=== PATIENT | female | born 1950 | race Caucasian/White ===

== ENCOUNTER 2017-08-29 07:40 | Observation (INO) | payer MEDICARE ==
[2017-08-29] MEDS ORDERED: Fentanyl 100 MCG/2 ML VIAL ONE ×4 (08:38→11:33)
[2017-08-29] MEDS ORDERED: Midazolam HCl 2 mg/2 ml Vial ONE (08:38)
[2017-08-29] MEDS ORDERED: CEFAZOLIN/Water 2 GM/20 ML SYRINGE ONE (08:38)
[2017-08-29] MEDS ORDERED: Lidocaine 1% w/Epinephrine 1:200K 30 ML VIAL ONE (09:01)
[2017-08-29] MEDS ORDERED: Bupivacaine HCl 0.5%/Epinephrine 1:200,000/PF 30 ml Vial ONE (09:01)
--- NOTE | 2017-08-29 11:14 | OP ---
DATE OF PROCEDURE: 08/29/2017 SURGEON: Dr. Deni Medel PREOPERATIVE DIAGNOSIS: Large cell lymphoma. PROCEDURE: Left internal jugular MediPort and excisional biopsy left groin. Node and excision left skin lesion. PROCEDURE: After adequate anesthesia had been obtained, the patient was prepped and draped. A needl e was used to puncture the internal jugular vein with ultrasound guidance. Following this, a wire wa s placed and under fluoroscopic guidance with several passes was placed into the superior vena cava w ith the initial passes tending to go down the left subclavian and then left internal mammary vein. F ollowing this, a separate incision was made over the breast. A tunnel created and the catheter broug ht from one incision to the other. Dilator and sheath were placed under fluoroscopy. The catheter w as then introduced, sheath peeled away and catheter pulled back to good position in the superior vena cava. It was then connected to the MediPort placed in the tunnel and the wounds closed in layers. Following this, a skin incision was made over the left groin node and dissection was carried down to it was dissected free staying immediately adjacent to the capsule and using clips to deal with any ve ssels. Following removal, the wound was closed trying to obliterate the space occupied by this lymph node which was about the size of a golf ball. Following this, the wound was closed in layers and an excision of a small skin lesion below the knee was performed. Wounds were all closed and dressed wi th Dermabond and 1% lidocaine with epinephrine was utilized on the wounds.
[2017-08-29] MEDS ORDERED: PROPOFOL 200 MG/20 ML VIAL ONE (11:38)
[2017-08-29] MEDS ORDERED: Lidocaine 1% PF 5 ML VIAL ONE (11:38)
[2017-08-29] MEDS ORDERED: Promethazine HCl 25 MG/ML VIAL SLOW IVP PRN (12:54)
[2017-08-29] MEDS ORDERED: Ondansetron HCl/PF 4 MG/2 ML Vial IVP PRN (12:54)
[2017-08-29] MEDS ORDERED: Promethazine HCl 25 MG/ML VIAL IM PRN (12:54)
[2017-08-29 13:03] VITALS: BP 153/78; TEMP 97.4; BMI 31.6
[2017-08-29] MEDS ORDERED: Acetaminophen 325 MG TAB PO PRN (13:15)
[2017-08-29] MEDS ORDERED: HYDROcodone/Acetaminophen 5/325 mg Tablet PO PRN (13:15)
[2017-08-29] MEDS ORDERED: traMADol HCl 50 MG TAB PO PRN (13:16)
[2017-08-29] MEDS ORDERED: Zolpidem Tartrate 5 MG TAB PO PRN (13:17)
[2017-08-29] MEDS ORDERED: CEFAZOLIN/Water 2 GM/20 ML SYRINGE SLOW IVP SCH ×2 (14:00→18:00)
--- NOTE | 2017-08-29 14:14 | RAD ---
PORTABLE AP CHEST X-RAY: 08/29/2017 HISTORY: Mediport insertion. COMPARISON: None available. FINDINGS: There is a left internal jugular vein Mediport catheter noted in place, with the tip overlying the ex pected location of the SVC. There is no pneumothorax or pleural effusion seen. The cardiac silhouet te and pulmonary vasculature are within normal limits. There is a curvilinear area of increased dens ity overlying the right mid chest, which has the appearance of radiopaque suture material. Linear sc arring versus atelectasis is present at the left lung base. The lungs are otherwise clear. The osse ous structures are intact. IMPRESSION: 1. Left internal jugular vein Mediport catheter in place without evidence of a pneumothorax. 2. Evidence of postsurgical changes, right hemithorax, with minimal linear scarring in the left lung base. POS: [facility]
[2017-08-30] MEDS ORDERED: Levothyroxine Sodium 125 MCG TAB PO SCH (06:00)
[2017-08-30] MEDS ORDERED: PARoxetine 20 MG TAB PO SCH (09:00)
[2017-08-30] MEDS ORDERED: clonazePAM 1 MG TAB PO SCH (09:00)
[2017-08-30] MEDS ORDERED: sulfaSALAzine 500 MG TAB PO SCH (09:00)
--- NOTE | 2017-08-30 11:57 | DIS ---
HOSPITAL COURSE: The patient was admitted for placement of a MediPort as well as removal of the left inguinal node. She underwent these procedures without difficulty and was discharged the following d ay on her admitting medicines plus pain medicine. Discharge and follow up instructions were given.
== END 2017-08-29 19:16 | disposition home or self-care (01) ==
LOC: SDC 07:40 → SURG A 12:53
PROVIDERS: ADMIT Thoracic Surgery (Cardiothoracic Vascular Surgery); ATTEND Thoracic Surgery (Cardiothoracic Vascular Surgery)
PROC: 02HV33Z Insertion of Infusion Device into Superior Vena Cava, Percutaneous Approach (ICD-10-PCS; principal; 2017-08-29)
PROC: B518ZZA Fluoroscopy of Superior Vena Cava, Guidance (ICD-10-PCS; 2017-08-29)
PROC: 0HBLXZZ Excision of Left Lower Leg Skin, External Approach (ICD-10-PCS; 2017-08-29)
PROC: 07TJ0ZZ Resection of Left Inguinal Lymphatic, Open Approach (ICD-10-PCS; 2017-08-29)
DX: C83.35 Diffuse large B-cell lymphoma, lymph nodes of inguinal region and lower limb (principal); D23.72 Other benign neoplasm of skin of left lower limb, including hip; M06.9 Rheumatoid arthritis, unspecified; Z87.891 Personal history of nicotine dependence; Z85.118 Personal history of other malignant neoplasm of bronchus and lung; Z79.899 Other long term (current) drug therapy
CPT/HCPCS: 11400; 36561; 38500; 71045; 88184; 88305; 88307; 88341; 88342; 88360; 88377; 96374; C1788; J0670; J1642; J2001; J2250; J2704; J3010

== ENCOUNTER 2017-09-13 10:21 | Outpatient (CLI) | payer MEDICARE ==
--- NOTE | 2017-09-13 14:06 | PET ---
NUCLEAR MEDICINE FDG PET CT: (Positron Emission Tomography) DATE: 09/13/17 HISTORY: 66-year-old female with large B-cell lymphoma, C85.10. Initial staging. COMPARISON: None. TECHNIQUE: IV injection F-18 Fluorodeoxyglucose (FDG) dose: 11.3 mCi PET and attenuation-correction CT performed from skull base to proximal thighs. FINDINGS: SUV (standard uptake value) numbers given are maximum SUV's: There are surgical clips around a small, irregularly shaped soft tissue density in the left groin, pr esumably representing the site of a recently biopsied inguinal lymph node. It has SUV of 2.5. There is no region of abnormal FDG avidity anywhere else in the abdomen, pelvis, chest, or neck. IMPRESSION: 1. Mildly increased uptake in the left groin, representing post biopsy changes for lymph node biopsy . 2. Otherwise, the PET scan is negative. BRETT Huang POS: [facility]
== END 2017-09-13 10:22 | disposition home or self-care (01) ==
LOC: PET 10:21
PROVIDERS: ATTEND Internal Medicine Hematology & Oncology
DX: C85.10 Unspecified B-cell lymphoma, unspecified site (principal)
CPT/HCPCS: 78815; A9552

== ENCOUNTER 2017-11-22 09:31 | Outpatient (CLI) | payer MEDICARE ==
--- NOTE | 2017-11-22 14:41 | PET ---
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 The patient's las t chemotherapy was on 10/16/17. The exam was requested for restaging. TECHNIQUE: PET scanning with CT attenuation correction was performed from the base of the brain through the prox imal thighs following the intravenous administration of 12.2 mCi [id number] in the left a ntecubital fossa. Imaging was performed after an uptake interval of 51 minutes. COMPARISON: PET CT dated 09/13/17. FINDINGS: No chito hypermetabolism is seen in the neck, chest, axilla, abdomen, pelvis, or inguinal regions. N o hypermetabolic pulmonary nodules, liver, adrenal, or skeletal lesions are identified. There is physiologic activity in the GI and tracts, heart, and the visualized portions of the brai n. The CT scan used for attenuation correction demonstrates no evidence of pleural effusions or ascites. IMPRESSION: No evidence of viable lymphoma. POS: [facility]
== END 2017-11-22 09:32 | disposition home or self-care (01) ==
LOC: PET 09:31
PROVIDERS: ATTEND Internal Medicine Hematology & Oncology
DX: C85.15 Unspecified B-cell lymphoma, lymph nodes of inguinal region and lower limb (principal)
CPT/HCPCS: 78815; A9552

== ENCOUNTER → 2017-12-10 | Outpatient (CLI) | payer MEDICARE ==
--- NOTE | 2017-12-10 16:48 | RAD ---
CHEST TWO VIEWS: 12/10/2017 HISTORY: Malignant neoplasm of the bronchus/lung. COMPARISON: 08/29/2017 FINDINGS: There is a CT injectable left-sided Port-A-Cath, distal tip overlying the region of the cavoatrial ju nction. There is a suture line within the lateral aspect of the right upper lobe region. No pneumot horax, pleural fluid, focal consolidation, or alveolar edema. IMPRESSION: Stable two view examination of the chest. POS: [facility]
== END ==
LOC: RAD 10:18
PROVIDERS: ATTEND Thoracic Surgery (Cardiothoracic Vascular Surgery)
DX: C34.90 Malignant neoplasm of unspecified part of unspecified bronchus or lung (principal)
CPT/HCPCS: 71046

== ENCOUNTER 2017-12-20 09:59 | Day surgery (SDC) | payer MEDICARE ==
[2017-12-19 09:35] VITALS: BMI 34.2
[2017-12-20] MEDS ORDERED: Bupivacaine/Epinephrine 0.25% 30 ML VIAL ONE (10:41)
[2017-12-20] MEDS ORDERED: Fentanyl 100 MCG/2 ML VIAL ONE (10:53)
[2017-12-20] MEDS ORDERED: PROPOFOL 20 ML ONE (10:53)
[2017-12-20] MEDS ORDERED: Lidocaine 1% PF 5 ML VIAL ONE (15:00)
[2017-12-20] MEDS ORDERED: PROPOFOL 200 MG/20 ML VIAL ONE (15:00)
--- NOTE | 2017-12-21 16:52 | OP ---
DATE OF PROCEDURE: 12/20/2017 PREOPERATIVE DIAGNOSIS: Painful MediPort. POSTOPERATIVE DIAGNOSIS: Painful MediPort. PROCEDURE: After adequate anesthesia had been obtained, the patient was prepped and draped and 1% l idocaine was used to infiltrate over the MediPort site. Skin incision was made exposing the MediPort can. The can was in the proper orientation and was removed from its pocket after cutting some adhe sive bands holding it in place. Catheter was removed with the can without difficulty. The wound was then irrigated and closed in layers. The patient tolerated the procedure well.
== END 2017-12-20 12:35 | disposition home or self-care (01) ==
LOC: SDC 09:59
PROVIDERS: ATTEND Thoracic Surgery (Cardiothoracic Vascular Surgery)
PROC: 0JPT0WZ Removal of Totally Implantable Vascular Access Device from Trunk Subcutaneous Tissue and Fascia, Open Approach (ICD-10-PCS; principal; 2017-12-20)
DX: T82.848A Pain due to vascular prosthetic devices, implants and grafts, initial encounter (principal); C34.90 Malignant neoplasm of unspecified part of unspecified bronchus or lung; C85.10 Unspecified B-cell lymphoma, unspecified site; M05.741 Rheumatoid arthritis with rheumatoid factor of right hand without organ or systems involvement; Z87.891 Personal history of nicotine dependence; Z79.899 Other long term (current) drug therapy
CPT/HCPCS: J2001; J2704; J3010

== ENCOUNTER 2018-03-01 08:09 | Outpatient (CLI) | payer MEDICARE ==
--- NOTE | 2018-03-01 12:21 | PET ---
PET SCAN WITH CT ATTENUATION CORRECTION: HISTORY: B-cell lymphoma. Patient has undergone chemotherapy. Removal of half of a lung in the past. Examinati on requested for restaging. COMPARISON: 09/13/17, 11/22/17. TECHNIQUE: PET scanning with CT attenuation correction is performed from the base of the brain to the proximal t highs following the intravenous administration of 10.5 mCi F18-FDG. FINDINGS: HEAD/NECK: No abnormal FDG localization. CHEST: No abnormal FDG localization. ABDOMEN/PELVIS: No abnormal FDG localization. OSSEOUS STRUCTURES: No abnormal FDG localization. IMPRESSION: No abnormal FDG localization. No PET evidence of viable lymphoma. POS: [facility]
== END 2018-03-01 08:10 | disposition home or self-care (01) ==
LOC: PET 08:09
PROVIDERS: ATTEND Internal Medicine Hematology & Oncology
DX: C85.15 Unspecified B-cell lymphoma, lymph nodes of inguinal region and lower limb (principal)
CPT/HCPCS: 78815; A9552

== ENCOUNTER 2019-03-07 08:22 | Outpatient (CLI) | payer MEDICARE ==
--- NOTE | 2019-03-07 13:05 | PET ---
PET CT: HISTORY: A 68-year-old female with diffuse large B cell lymphoma. Status post last chemotherapy in July 2018. Exam requested for followup and re-staging. COMPARISON: PET scan dated 03/01/2018. TECHNIQUE: PET scanning with CT attenuation correction was performed from the base of the brain through the prox imal thighs following the intravenous administration of 12.3 millicuries F18 fluorodeoxyglucose in th e left hand. FINDINGS: No chito hypermetabolism is seen in the neck, chest, axillae, abdomen, pelvis or inguinal regions. No hypermetabolic pulmonary nodules or liver, adrenal or skeletal lesions are identified. There is physiologic activity in the GI and tracts, heart, and visualized portions of the brain. The CT scan used for attenuation correction demonstrates no evidence of pleural effusions, pericardia l effusion or ascites. IMPRESSION: No evidence of viable lymphoma. POS: [facility]
== END 2019-03-07 08:23 | disposition home or self-care (01) ==
LOC: PET 08:22
PROVIDERS: ATTEND Internal Medicine Hematology & Oncology
DX: C83.30 Diffuse large B-cell lymphoma, unspecified site (principal)
CPT/HCPCS: 78815; A9552